=== PATIENT | male | born 1975 | race Hispanic/Latino ===

== ENCOUNTER 2021-07-06 06:16 | Day surgery (SDC) | payer MEDICARE ==
[~2021-07-06] VITALS: Ht 160 cm; Wt 86.6 kg
[~2021-07-06 06:16] MED LIST: ACET-66 PO; ATOR20TA65 PO; BISM262T18 PO; CALC-28 PO; CARB15OT AD; CARB200C7 PO; CHOL100046 PO; CLOT12CR TP; DIPH25 PO; DIPH30C TP; DOCU100T PO; FERS325 PO; FISH1CAP27 PO; GUAIFDM PO; HC1C1.5 TP; IBUP-2482 PO; LEVO150T11 PO; MAAL30 PO; MOM30 PO; MULT-13 PO; OLAN5TAB76 PO; PANT40TA55 PO; PHEN177S29 PO; SOLI10TA PO; VITADO TP; [UNRECOGNIZED DRUG - CODE] MC
[2021-07-06] MEDS ORDERED: 0.9%NACL 1000ML 1,000 ML IV ONE (06:25)
[2021-07-06 07:26] VITALS: BP 139/89
[2021-07-06] MEDS ORDERED: PROPOFOL 10 MG/ML 20ML VIAL IV ONE ×2 (07:51→08:02)
== END 2021-07-06 09:00 | disposition home or self-care (01) ==
LOC: DAH 06:16 → ENDO 06:16
PROVIDERS: ATTEND Internal Medicine Gastroenterology
DX: R93.5 Abnormal findings on diagnostic imaging of other abdominal regions, including retroperitoneum (principal); Z20.822 Contact with and (suspected) exposure to COVID-19; K31.7 Polyp of stomach and duodenum; R74.8 Abnormal levels of other serum enzymes; K44.9 Diaphragmatic hernia without obstruction or gangrene; K76.9 Liver disease, unspecified; K31.89 Other diseases of stomach and duodenum; I10 Essential (primary) hypertension; E78.5 Hyperlipidemia, unspecified; K21.9 Gastro-esophageal reflux disease without esophagitis; I86.8 Varicose veins of other specified sites; K59.04 Chronic idiopathic constipation; K92.1 Melena; E03.9 Hypothyroidism, unspecified; Z98.890 Other specified postprocedural states; Z79.899 Other long term (current) drug therapy
CPT/HCPCS: 43239; 43242; 43251; 87635; 88305; 88307; 88313; 88341; 88342; A4215 ×3; A4221; A4222; A4223; A4606; A4620; A4663; C9803; J2704 ×2; J7030

== ENCOUNTER 2023-04-19 08:30 | Day surgery (SDC) | payer MEDICARE ==
[2023-04-19] VITALS (11 sets, daily range): BP systolic 87–108; BP diastolic 59–67; PULSE 73–83; RESP 13–16
[~2023-04-19 08:30] MED LIST changes: +DIPH-1242 PO; -DIPH25 PO
[2023-04-19] MEDS ORDERED: [UNRECOGNIZED DRUG - OTHER] PO (09:52)
[2023-04-19] MEDS ORDERED: CYAN-35 PO (09:52)
[2023-04-19] MEDS ORDERED: OXYB10TA30 PO (09:52)
[2023-04-19] MEDS ORDERED: LISI10TA24 PO (09:52)
[2023-04-19] MEDS ORDERED: CHOL400T33 PO (09:52)
[2023-04-19] MEDS ORDERED: folic acid (09:52)
[2023-04-19] MEDS ORDERED: SPIR25TA6 PO (09:52)
[2023-04-19] MEDS ORDERED: FERR325T29 PO (09:52)
[2023-04-19] MEDS ORDERED: LACT10SO5 PO (09:52)
[2023-04-19] MEDS ORDERED: LINA145C PO (09:52)
[2023-04-19] MEDS ORDERED: PROPOFOL 10 MG/ML 20ML VIAL IV ONE (10:59)
[2023-04-19] MEDS ORDERED: PHENYLEPHRINE HCL 10 MG/ML 1ML VIAL IV ONE (11:15)
== END 2023-04-19 12:35 | disposition home or self-care (01) ==
LOC: DAH 08:30 → ENDO 08:30
PROVIDERS: ATTEND Internal Medicine
DX: R93.3 Abnormal findings on diagnostic imaging of other parts of digestive tract (principal); K21.00 Gastro-esophageal reflux disease with esophagitis, without bleeding; K92.1 Melena; K44.9 Diaphragmatic hernia without obstruction or gangrene; K29.50 Unspecified chronic gastritis without bleeding; R18.8 Other ascites; K74.69 Other cirrhosis of liver; K59.04 Chronic idiopathic constipation; I10 Essential (primary) hypertension; E03.9 Hypothyroidism, unspecified; E78.5 Hyperlipidemia, unspecified; K72.90 Hepatic failure, unspecified without coma; Z79.899 Other long term (current) drug therapy
CPT/HCPCS: 43239; J2704; J2371; A4620; A4215 ×2; A4223; A7002; A4222; A4221; A4663; A4216; J7030; A4606; J3490

== ENCOUNTER 2023-08-25 05:53 | Day surgery (SDC) | payer MEDICARE ==
[2023-08-25] VITALS (9 sets, daily range): BP systolic 106–121; BP diastolic 68–78; PULSE 75–82; RESP 15–18
[~2023-08-25] VITALS: Ht 167.6 cm; Wt 83.5 kg
[~2023-08-25 05:53] MED LIST changes: -ACET-66 PO; +ATOR10 PO; -ATOR20TA65 PO; -BISM262T18 PO; -CALC-28 PO; -CARB15OT AD; -CARB200C7 PO; -CHOL100046 PO; +CHOL400T33 PO; -CLOT12CR TP; +CYAN-106 PO; -DIPH-1242 PO; -DIPH30C TP; -DOCU100T PO; +FERR325T29 PO; -FERS325 PO; -GUAIFDM PO; -HC1C1.5 TP; -IBUP-2482 PO; +LACT10SO85 PO; +LEVO150C4 PO; -LEVO150T11 PO; +LINA145C PO; +LISI10TA24 PO; -MAAL30 PO; -MOM30 PO; -MULT-13 PO; +OMEP40CA21 PO; +OXYB10TA30 PO; -PANT40TA55 PO; -PHEN177S29 PO; -SOLI10TA PO; +SPIR25TA6 PO; -VITADO TP; -[UNRECOGNIZED DRUG - CODE] MC; +[UNRECOGNIZED DRUG - OTHER] PO; +folic acid
[2023-08-25] MEDS: 0.9%NACL 1000ML 1,000 ML IV ONE (07:26)
== END 2023-08-25 08:30 | disposition home or self-care (01) ==
LOC: DAH 05:53 → ENDO 05:53
PROVIDERS: ATTEND Internal Medicine Gastroenterology
DX: K92.1 Melena (principal); K64.8 Other hemorrhoids; K62.89 Other specified diseases of anus and rectum; D50.9 Iron deficiency anemia, unspecified; K76.89 Other specified diseases of liver; K29.50 Unspecified chronic gastritis without bleeding; K21.9 Gastro-esophageal reflux disease without esophagitis; K59.04 Chronic idiopathic constipation; R18.8 Other ascites; R93.3 Abnormal findings on diagnostic imaging of other parts of digestive tract; K44.9 Diaphragmatic hernia without obstruction or gangrene; E03.9 Hypothyroidism, unspecified; E78.5 Hyperlipidemia, unspecified; Z12.11 Encounter for screening for malignant neoplasm of colon; Z79.899 Other long term (current) drug therapy; Z79.890 Hormone replacement therapy
CPT/HCPCS: 45378; J7030 ×2; A4620; A4215; A4223; A7002; A4221; A4663; A4606

== ENCOUNTER 2023-11-08 07:02 | Day surgery (SDC) | payer MEDICARE ==
[2023-11-08] VITALS (11 sets, daily range): BP systolic 91–103; BP diastolic 56–71; PULSE 82–96; RESP 14–16
[~2023-11-08] VITALS: Ht 190.5 cm; Wt 61.7 kg
[2023-11-08] MEDS: 0.9%NACL 1000ML 1,000 ML IV ONE (11:11)
== END 2023-11-08 12:50 | disposition home or self-care (01) ==
LOC: ENDO 07:02
PROVIDERS: ATTEND Internal Medicine Gastroenterology
DX: D50.9 Iron deficiency anemia, unspecified (principal); K62.89 Other specified diseases of anus and rectum; K92.1 Melena; K64.8 Other hemorrhoids; K76.6 Portal hypertension; K74.69 Other cirrhosis of liver; K76.82 Hepatic encephalopathy; I85.10 Secondary esophageal varices without bleeding; K21.00 Gastro-esophageal reflux disease with esophagitis, without bleeding; K31.7 Polyp of stomach and duodenum; K59.04 Chronic idiopathic constipation; K31.89 Other diseases of stomach and duodenum; I10 Essential (primary) hypertension; E03.9 Hypothyroidism, unspecified; E78.5 Hyperlipidemia, unspecified; H91.90 Unspecified hearing loss, unspecified ear; Z79.899 Other long term (current) drug therapy
CPT/HCPCS: 43251; 43239; 82948; 45378; J7030 ×2; A4620; A4215 ×2; A4223; A4657; A4221; A4663; A4606